=== PATIENT | female | born 1990 | race Caucasian/White ===

== ENCOUNTER 2018-07-22 18:42 | Emergency (ER) | payer MEDICAID ==
[2018-07-22 19:41] LABS: ABS Basophils 0.1 10^3/ul (0-0.2); ABS Eosinophils 0.2 10^3/ul (0-0.6); ABS Lymphocytes 2.5 10^3/ul (1.0-4.8); ABS Monocytes 0.7 10^3/ul (0-0.8); ABS Neutrophils 7.1 10^3/ul (1.5-7.7); ABS Nucleated RBC 0 10^3/ul; Hematocrit 42 % (35-47); Hemoglobin 14.3 g/dl (12.0-16.0); Lymphocyte % 23.9 % (25-47); Mean Corpuscular HGB Conc 34 g/dl (31-36); Mean Corpuscular Hemoglobin 31 pg (27-31); Mean Corpuscular Volume 91 fL (80-97); Mean Platelet Volume 7.1 um3 (7.4-10.4); Nucleated Red Blood Cells % 0.2; Platelet Count 358 10^3/ul (150-450); Red Blood Count 4.58 10^6/ul (4.00-5.40); Red Cell Distribution Width 13 % (10.5-15); White Blood Count 10.6 10^3/ul (3.5-10.8)
[2018-07-22 19:58] LABS: EGFR Non-African American 78.1 (>60)
--- NOTE | 2018-07-22 20:29 | ED ---
Psychiatric Complaint - HPI Summary HPI Summary: This patient is a 28 year old female presenting to [facility] accompanied by counselor with a chief complaint of mental health evaluation for SI for the past 3 months. Patient states that she had a disagreement with a roommate when she was living in [place] and moved up to [place] 2 weeks ago when a space opened up at a snf. She states that she has no family or friends to depend on, even in [place]. Today, she told the counselor from the advocacy [facility] that she wished to go to the [facility] for a mental health evaluation or she would jump off a building. Patient states that she does not take any medication, but smokes 1 pack a day. She also states that she has not smoked marijuana for 3 weeks and has quit other street drugs at the beginning of the year. - History Of Current Complaint Chief Complaint: EDMentalHealth Time Seen by Provider: 07/22/18 20:18 Hx Obtained From: Patient Onset/Duration: Lasting Weeks, Still Present Timing: Constant Severity Currently: Moderate Character: Depressed Aggravating Factor(s): Nothing Alleviating Factor(s): Nothing Has Suicidal: Reports: Thoughts, With A Plan - Allergies/Home Medications Allergies/Adverse Reactions: Allergies Allergy/AdvReac Type Severity Reaction Status Date / Time bupropion [From Wellbutrin] Allergy See Comment Verified 07/22/18 18:46 buspirone [From BuSpar] Allergy See Comment Verified 07/22/18 18:46 dicyclomine [From Bentyl] Allergy Headache Verified 07/22/18 18:46 Home Medications: Home Medications NK [No Home Medications Reported] 07/22/18 [History Confirmed 07/22/18] PMH/Surg Hx/FS Hx/Imm Hx Previously Healthy: Yes Sensory History: Denies: Hx Legally Blind, Hx Hearing Problem EENT History: Denies: Hx Deafness Infectious Disease History: No Infectious Disease History: Denies: Traveled Outside the [place] in Last 30 Days - Family History Known Family History: Negative: Hypertension - Social History Lives: Intermediate Alcohol Use: None Hx Substance Use: Yes Substance Use Type: Reports: Marijuana Hx Tobacco Use: Yes Smoking Status (MU): Light Every Day Tobacco Smoker Review of Systems Negative: Fever Positive: Depressed, Other - SI All Other Systems Reviewed And Are Negative: Yes Physical Exam - Summary Physical Exam Summary: Appearance: Well-appearing, Well-nourished, lying in bed comfortable Skin: Warm, dry, no obvious rash Eyes: sclera anicteric, no conjunctival pallor ENT: mucous membranes moist Neck: deferred Respiratory: No signs of respiratory distress Cardiovascular: Appears well perfused, pulses are nml Abdomen: deferred Musculoskeletal: Moving all 4 extremities without obvious discomfort Neurological: Awake and alert, mentation is normal, speech is fluent and appropriate Psychiatric: affect is normal, does not appear anxious or depressed Triage Information Reviewed: Yes Vital Signs On Initial Exam: Initial Vitals Temp Pulse Resp BP Pulse Ox 99 F 107 16 129/90 95 07/22/18 18:46 07/22/18 18:46 07/22/18 18:46 07/22/18 18:46 07/22/18 18:46 Vital Signs Reviewed: Yes Diagnostics - Vital Signs Vital Signs Temp Pulse Resp BP Pulse Ox 07/22/18 18:46 99 F 107 16 129/90 95 - Laboratory Lab Results: Lab Results 07/22/18 07/22/18 Range/Units 19:30 19:30 WBC 10.6 (3.5-10.8) 10^3/ul RBC 4.58 (4.00-5.40) 10^6/ul Hgb 14.3 (12.0-16.0) g/dl Hct 42 (35-47) % MCV 91 (80-97) fL MCH 31 (27-31) pg MCHC 34 (31-36) g/dl RDW 13 (10.5-15) % Plt Count 358 (150-450) 10^3/ul MPV 7.1 L (7.4-10.4) um3 Neut % (Auto) 66.9 (38-83) % Lymph % (Auto) 23.9 L (25-47) % [place] % (Auto) 6.5 (0-7) % Eos % (Auto) 2.0 (0-6) % Baso % (Auto) 0.7 (0-2) % Absolute Neuts (auto) 7.1 (1.5-7.7) 10^3/ul Absolute Lymphs (auto) 2.5 (1.0-4.8) 10^3/ul Absolute Monos (auto) 0.7 (0-0.8) 10^3/ul Absolute Eos (auto) 0.2 (0-0.6) 10^3/ul Absolute Basos (auto) 0.1 (0-0.2) 10^3/ul Absolute Nucleated RBC 0 10^3/ul Nucleated RBC % 0.2 Sodium 139 (135-145) mmol/L Potassium 4.3 (3.5-5.0) mmol/L Chloride 105 (101-111) mmol/L Carbon Dioxide 28 (22-32) mmol/L Anion Gap 6 (2-11) mmol/L BUN 14 (6-24) mg/dL Creatinine 0.87 (0.51-0.95) mg/dL Est GFR ( Amer) 94.5 (>60) Est GFR (Non-Af Amer) 78.1 (>60) BUN/Creatinine Ratio 16.1 (8-20) Glucose 109 H (70-100) mg/dL Calcium 9.1 (8.6-10.3) mg/dL Total Bilirubin 0.30 (0.2-1.0) mg/dL AST 19 (13-39) U/L ALT 21 (7-52) U/L Alkaline Phosphatase 80 (34-104) U/L Total Protein 6.6 (6.4-8.9) g/dL Albumin 4.1 (3.2-5.2) g/dL Globulin 2.5 (2-4) g/dL Albumin/Globulin Ratio 1.6 (1-3) TSH 1.37 (0.34-5.60) mcIU/mL Salicylates < 2.50 (<30) mg/dL Acetaminophen < 15 mcg/mL Serum Alcohol < 10 (<10) mg/dL Result Diagrams: 07/22/18 19:30 07/22/18 19:30 Lab Statement: Any lab studies that have been ordered have been reviewed, and results considered in the medical decision making process. - EKG 0251 Cardiac Rate: Bradycardia EKG Rhythm: Sinus Bradycardia - [address] Segment: Normal Ectopy: None EKG Interpretation: P waves, QRS complex, and T waves are within normal limits Course/Dx - Course Course Of Treatment: This is a young woman with suicidal ideation, having just moved to the area of concern to use after some relationship issues up there. He does not have any significant medical problems at present and is medically clear for psychiatric evaluation. Assessment/Plan: This patient is a 28 year old female presenting to [facility] accompanied by counselor with a chief complaint of mental health evaluation for SI for the past 3 months. An EKG, taken 0251, reveals Sinus Bradycardia at 59 BPM, P waves, QRS complex, and T waves are within normal limits, T waves and intervals are normal, no ischemic changes. Bloodwork Obtained. Urinalysis Obtained. Test results with no significant abnormalities. In the ED course the patient was given a Nicotine inhaler 10mg INH. Patient will be signed out to Dr. Herzog at end of shift, awaiting transfer Discharge - Sign-Out/Discharge Documenting (check all that apply): Sign-Out Patient Signing out patient TO: Shakira Herzog - Discharge Plan Referrals: No Primary Care Phys,NOPCP [Primary Care Provider] - - Attestation Statements Document Initiated by Scribe: Yes Documenting Scribe: Lisa Dove Provider For Whom Scribe is Documenting (Include Credential): Tahir Guillen MD Scribe Attestation: Lisa Serrano scribed for Tahir Guillen MD on 07/23/18 at 0613.
[2018-07-22 22:08] LABS: Urine Appearance Cloudy; Urine Blood Negative (Negative); Urine Color Yellow; Urine Ketones Negative (Negative); Urine Protein Negative (Negative); Urine Urobilinogen Negative (Negative)
[2018-07-22] MEDS ORDERED: Nicotine Inhaler* 10 MG AMP INH PRN (23:09)
[2018-07-22] MEDS ORDERED: Mouth Piece, Nicotine* 1 EACH CARTRIDGE INH ONE (23:09)
--- NOTE | 2018-07-23 09:56 | PN ---
Progress Note - Progress Note Date of Service: 07/23/18 Note: SIGN-OUT FROM DR. GUILLEN AT SHIFT CHANGE PENDING MHE AND DISPOSITION. 1117: ED provider at bedside A 28 y/o F presents to ED with c/o SI. She states needing help changing her life. She has not had previous psych admissions. Pt is upset about being transferred and became tearful. She is staying at the homeless care home in [place] and worried that if she is transferred to [place], she'll lose her spot at the care home as well as her possessions. 1815: ED provider at bedside Pt is escalating. Pt wants to take a shower. COT: Received pt from Dr. Guillen at sign-out. Pt has been dispo for transfer, awaiting a location. Pt will be signed out to Dr. Guillen at shift change pending transfer. DX: DISPO: SIGN-OUT TO DR. GUILLEN AT SHIFT CHANGE PENDING TRANSFER. This is scribe, SoAlexiaoung Nitin, shanika for attending Dr. Shakira Herzog MD
--- NOTE | 2018-07-23 13:44 | PN ---
ED Flex Patient Progress Note Subjective: This is a 28 year-old F who is pending psychiatric secondary to SI ___. Pt offers no complaints at this time. Smokes but does not want nicotine replacement. Objective: Vitals: Most recent vital signs documented below. General NAD, Alert and oriented x3. Heart: rrr, S1/S2 Lungs: CTA, BREATHING EASILY INTEG: warm, dry, well perfused NEURO: CN II-XII grossly intact ELIZABETH: moving appropriately PSYCH: minimal responses, tearful - states "I'm sitting in filth...I smell" - offered showered and she responds "what's the point", poor eye contact Laboratory: Current laboratory results documented below. Assessment: 1) SI 2) Nicotine dependence Plan: 1) Pending psychiatric evaluation. Will follow up daily __while in ED___. Offered distraction such as shower mentioned above, coloring, etc - pt does not respond and stares at the wall 2) declines nicotine replacement at this time but would be happy to order should she change her mind. She is giving minimal responses at this time so could not inquire about typically quantity and which method she would prefer. Vital Signs Temp Pulse Resp BP Pulse Ox 98.1 F 65 16 108/62 99 07/23/18 08:00 07/23/18 08:00 07/23/18 08:00 07/23/18 08:00 07/23/18 08:00 Lab Results - Entire Visit 07/22/18 07/22/18 07/22/18 21:50 21:50 19:30 WBC RBC Hgb Hct MCV MCH MCHC RDW Plt Count MPV Neut % (Auto) Lymph % (Auto) [place] % (Auto) Eos % (Auto) Baso % (Auto) Absolute Neuts (auto) Absolute Lymphs (auto) Absolute Monos (auto) Absolute Eos (auto) Absolute Basos (auto) Absolute Nucleated RBC Nucleated RBC % Sodium 139 Potassium 4.3 Chloride 105 Carbon Dioxide 28 Anion Gap 6 BUN 14 Creatinine 0.87 Est GFR ( Amer) 94.5 Est GFR (Non-Af Amer) 78.1 BUN/Creatinine Ratio 16.1 Glucose 109 H Calcium 9.1 Total Bilirubin 0.30 AST 19 ALT 21 Alkaline Phosphatase 80 Total Protein 6.6 Albumin 4.1 Globulin 2.5 Albumin/Globulin Ratio 1.6 TSH 1.37 Beta HCG, Quant < 0.60 Urine Color Yellow Urine Appearance Cloudy Urine pH 7.0 Ur Specific [place] 1.010 Urine Protein Negative Urine Ketones Negative Urine Blood Negative Urine Nitrate Negative Urine Bilirubin Negative Urine Urobilinogen Negative Ur Leukocyte Esterase Negative Urine Glucose Negative Salicylates < 2.50 Urine Opiates Screen None detected Acetaminophen < 15 Ur Barbiturates Screen None detected Ur Phencyclidine Scrn None detected Ur Amphetamines Screen None detected U Benzodiazepines Scrn None detected Urine Cocaine Screen None detected U Cannabinoids Screen None detected Serum Alcohol < 10 07/22/18 19:30 WBC 10.6 RBC 4.58 Hgb 14.3 Hct 42 MCV 91 MCH 31 MCHC 34 RDW 13 Plt Count 358 MPV 7.1 L Neut % (Auto) 66.9 Lymph % (Auto) 23.9 L [place] % (Auto) 6.5 Eos % (Auto) 2.0 Baso % (Auto) 0.7 Absolute Neuts (auto) 7.1 Absolute Lymphs (auto) 2.5 Absolute Monos (auto) 0.7 Absolute Eos (auto) 0.2 Absolute Basos (auto) 0.1 Absolute Nucleated RBC 0 Nucleated RBC % 0.2 Sodium Potassium Chloride Carbon Dioxide Anion Gap BUN Creatinine Est GFR ( Amer) Est GFR (Non-Af Amer) BUN/Creatinine Ratio Glucose Calcium Total Bilirubin AST ALT Alkaline Phosphatase Total Protein Albumin Globulin Albumin/Globulin Ratio TSH Beta HCG, Quant Urine Color Urine Appearance Urine pH Ur Specific [place] Urine Protein Urine Ketones Urine Blood Urine Nitrate Urine Bilirubin Urine Urobilinogen Ur Leukocyte Esterase Urine Glucose Salicylates Urine Opiates Screen Acetaminophen Ur Barbiturates Screen Ur Phencyclidine Scrn Ur Amphetamines Screen U Benzodiazepines Scrn Urine Cocaine Screen U Cannabinoids Screen Serum Alcohol
--- NOTE | 2018-07-23 17:05 | PN ---
Progress Note - Progress Note Date of Service: 07/23/18 Note: This 28 y/o WF unknown to this facility was brought in by her therapist due to verbalizing suicidal thought and a plan to jump off a bridge. She was found appropriate for admission but there is no bed on [facility] and attempts to find bed in other hospitals were unsuccessful so far. Plan is to FU daily and keep trying to transfer her to a different facility for now.
--- NOTE | 2018-07-23 19:52 | ED ---
Progress - Progress Note Progress Note: Pt was signed out from Dr. Herzog to Dr. Guillen. Awaiting disposition. Pt will be signed out to Dr. Herzog Discharge - Sign-Out/Discharge Documenting (check all that apply): Sign-Out Patient Signing out patient TO: Shakira Herzog Receiving patient FROM: Shakira Herzog - Discharge Plan Referrals: No Primary Care Phys,NOPCP [Primary Care Provider] - - Attestation Statements Document Initiated by Scribe: Yes Documenting Scribe: Eduard Montana Provider For Whom Scribe is Documenting (Include Credential): Tahir Guillen MD Scribe Attestation: Eduard Serrano, scribed for Tahir Guillen MD on 07/24/18 at 0626.
--- NOTE | 2018-07-24 07:52 | ED ---
Progress - Progress Note Progress Note: Pt was signed out from Dr. Guillen upon shift change pending MHE and disposition. - Consult/PCP Time Called: 22:30 Course/Dx - Course Course Of Treatment: Pt was signed out from Dr. Guillen upon shift change pending MHE and disposition. This is a young woman with suicidal ideation, having just moved to the area of concern to use after some relationship issues up there. He does not have any significant medical problems at present and is medically clear for psychiatric evaluation. Per mental health evaluation, pt should be transferred to a higher level of care facility. Pt is hemodynamically stable and safe for transfer. Pt is agreeable with the plan. - Diagnoses Provider Diagnoses: Major depressive disorder, single episode, unspecified Discharge - Sign-Out/Discharge Documenting (check all that apply): Patient Departure - Transfer to [facility] , Receiving Sign-Out Receiving patient FROM: Tahir Guillen - Upon shift change pending MHE and disposition - Discharge Plan Condition: Stable Disposition: TRANS HIGHER LVL OF CARE FAC - Billing Disposition and Condition Condition: STABLE Disposition: Trans Higher Lvl of Care Fac - Attestation Statements Document Initiated by Scribe: Yes Documenting Scribe: Miryam Wilcox Provider For Whom Scribe is Documenting (Include Credential): Shakira Herzog MD Scribe Attestation: I, Miryam Wilcox, scribed for Shakira Herzog MD on 07/24/18 at 1511. Scribe Documentation Reviewed: Yes Provider Attestation: The documentation as recorded by the Miryam breen accurately reflects the service I personally performed and the decisions made by me, Shakira Herzog MD
[2018-07-24 15:46] VITALS: BP 139/79
== END 2018-07-24 15:45 | disposition short-term general hospital (02) ==
LOC: ED 18:42
DX: F39 Unspecified mood [affective] disorder (principal); F17.210 Nicotine dependence, cigarettes, uncomplicated
CPT/HCPCS: 36415; 80053; 80307; 80320; 80329; 81003; 84443; 84702; 85025; 99285; A9270-GY; G0480